=== PATIENT | male | born 1955 | race Caucasian/White ===

== ENCOUNTER → 2023-11-21 01:35 | Outpatient (CLI) | payer BC, SELFPAY ==
--- NOTE | 2023-11-21 14:11 | DI.RAD_ITS ---
Exam(s) XR FOOT LT COMPLETE EXAM: XR FOOT LT COMPLETE CLINICAL HISTORY: Left foot pain,M79.672. TECHNIQUE: 2D digital imaging was performed. Three views. COMPARISON: No exams were available for comparison FINDINGS: BONES: No acute fracture is present. No bony destructive lesion is seen. Small plantar calcaneal spur . JOINTS: No dislocation present. No significant degenerative changes. SOFT TISSUE: Vascular calcifications. IMPRESSION: Small heel spur. DATA REPOSITORY: RADIATION DOSE DELIVERED:
== END ==
PROVIDERS: PCP Family Medicine; Visit Provider Podiatrist
DX: M79.672 Pain in left foot (principal)
CPT/HCPCS: 73630